=== PATIENT | female | born 2000 | race Two or more races ===

== ENCOUNTER 2024-04-22 02:25 | Emergency (ER) | payer OTHER ==
[~2024-04-22] VITALS: Ht 165.1 cm; Wt 59.0 kg
== END 2024-04-22 04:14 | disposition home or self-care (01) ==
LOC: ER 02:27
DX: O26.891 Other specified pregnancy related conditions, first trimester (principal); N93.0 Postcoital and contact bleeding; Z3A.01 Less than 8 weeks gestation of pregnancy